=== PATIENT | male | born 1955 | race Caucasian/White ===

== ENCOUNTER 2017-04-22 16:55 | Observation (INO) | payer BC, OTHER ==
[~2017-04-22] VITALS: Ht 185.4 cm; Wt 87.1 kg
[2017-04-22] MEDS ORDERED: NITROGLYCERIN 0.4 MG SL TABS BTL 25'S SL ONE (17:01)
[2017-04-22] MEDS ORDERED: ASPIRIN 81 MG CHEW (CHILDREN'S ASA) ONE (17:01)
--- NOTE | 2017-04-22 17:08 | ED Chest Pain ---
General Stated Complaint: CHEST TIGHTNESS Source: patient Exam Limitations: no limitations History of Present Illness Time seen by provider: 17:05 Initial Comments To ER per private vehicle with reports of chest tightness in the epigastric region associated with shortness of breath. Symptoms began last night and have been intermittent since then. He feels as though his heart is pounding. He has no nausea or diaphoresis. No history personally of heart disease. He reports no known medical problems but he does not have a physician. He does feel anxious but states that he would have no reason to be anxious as he is retired. This discomfort in the chest and shortness of breath kept him from sleeping last night. He rates his chest tightness at a 3 out of 10. He states that he did have some flulike symptoms with body aches and a cough over the past week but those symptoms seem to have resolved. Timing/Duration: changing over time Severity/Quality: moderate Location: central Radiation: no radiation Activities at Onset: none ASA po LEACH TANK TENDER: No NTG SL LEACH TANK TENDER: No Allergies and Home Medications Allergies Coded Allergies: No Known Drug Allergies (Unverified , 04/22/17) Home Medications No Active Prescriptions or Reported Meds Review of Systems Constitutional: see HPI EENTM: No Symptoms Reported Respiratory: See HPI, Cough, Shortness of Air Cardiovascular: See HPI, Chest Pain, Denies Edema, Denies Irregular Heart Rate , Denies Lightheadedness, Palpitations, Denies Syncope Genitourinary: No Symptoms Reported Musculoskeletal: no symptoms reported Skin: no symptoms reported Psychiatric/Neurological: No Symptoms Reported Endocrine: No Symptoms Reported Hematologic/Lymphatic: No Symptoms Reported Physical Exam Vital Signs Vital Sign - Last 12Hours 04/22/17 17:11 Temp 98.2 Pulse 110 Resp 12 B/P (MAP) 148/100 (116) Pulse Ox 100 Capillary Refill : General Appearance: No Apparent Distress, WD/WN, Anxious HEENT: PERRL/EOMI, TMs Normal Neck: Full Range of Motion, Normal Inspection Respiratory: No Accessory Muscle Use, No Respiratory Distress Cardiovascular: Normal Peripheral Pulses, Tachycardia (sinus at 110) Gastrointestinal: Normal Bowel Sounds, Non Tender, Soft Neurologic/Psychiatric: Alert, Oriented x3 Skin: Normal Color, Warm/Dry Progress/Results/Core Measures Results/Orders Lab Results Laboratory Tests Test 04/22/17 17:03 Range/Units White Blood Count 8.1 4.3-11.0 10^3/uL Red Blood Count 5.16 4.35-5.85 10^6/uL Hemoglobin 16.7 13.3-17.7 G/DL Hematocrit 48 40-54 % Mean Corpuscular Volume 94 80-99 FL Mean Corpuscular Hemoglobin 32 25-34 PG Mean Corpuscular Hemoglobin Concent 35 32-36 G/DL Red Cell Distribution Width 13.7 10.0-14.5 % Platelet Count 323 130-400 10^3/uL Mean Platelet Volume 9.9 7.4-10.4 FL Neutrophils (%) (Auto) 78 H 42-75 % Lymphocytes (%) (Auto) 16 12-44 % Monocytes (%) (Auto) 6 0-12 % Eosinophils (%) (Auto) 1 0-10 % Basophils (%) (Auto) 1 0-10 % Neutrophils # (Auto) 6.3 1.8-7.8 X 10^3 Lymphocytes # (Auto) 1.3 1.0-4.0 X 10^3 Monocytes # (Auto) 0.5 0.0-1.0 X 10^3 Eosinophils # (Auto) 0.1 0.0-0.3 10^3/uL Basophils # (Auto) 0.1 0.0-0.1 10^3/uL Prothrombin Time 12.9 12.2-14.7 SEC INR Comment 1.0 0.8-1.4 Activated Partial Thromboplast Time 28 24-35 SEC Sodium Level 138 135-145 MMOL/L Potassium Level 3.5 L 3.6-5.0 MMOL/L Chloride Level 103 98-107 MMOL/L Carbon Dioxide Level 22 21-32 MMOL/L Anion Gap 13 5-14 MMOL/L Blood Urea Nitrogen 10 7-18 MG/DL Creatinine 0.85 0.60-1.30 MG/DL Estimat Glomerular Filtration Rate > 60 BUN/Creatinine Ratio 12 Glucose Level 119 H 70-105 MG/DL Calcium Level 9.5 8.5-10.1 MG/DL Magnesium Level 2.1 1.8-2.4 MG/DL Total Bilirubin 0.9 0.1-1.0 MG/DL Aspartate Amino Transf (AST/SGOT) 23 5-34 U/L Alanine Aminotransferase (ALT/SGPT) 31 0-55 U/L Alkaline Phosphatase 79 40-136 U/L Myoglobin 51.4 10.0-92.0 NG/ML Troponin I < 0.30 <0.30 NG/ML Total Protein 7.9 6.4-8.2 GM/DL Albumin 4.6 H 3.2-4.5 GM/DL Thyroid Stimulating Hormone (TSH) 2.08 0.35-4.94 UIU/ML Free Thyroxine 1.21 0.70-1.48 NG/DL My Orders Orders - MUKUL EDUARDO APRN Aspirin Chewable Tablet (Baby Aspirin Ch (04/22/17 17:01) Nitroglycerin 0.4 Mg Btl 25's (Nitrostat (04/22/17 17:01) Cbc With Automated Diff (04/22/17 17:03) Magnesium (04/22/17 17:03) Chest 1 View, Ap/Pa Only (04/22/17 17:03) Ekg Tracing (04/22/17 17:03) Cardiac Profile 1 (04/22/17 17:03) Comprehensive Metabolic Panel (04/22/17 17:03) Myoglobin Serum (04/22/17 17:03) Protime With Inr (04/22/17 17:03) Partial Thromboplastin Time (04/22/17 17:03) O2 (04/22/17 17:03) Monitor-Rhythm Ecg Trace Only (04/22/17 17:03) Lipid Panel (04/23/17 06:00) Saline Lock/Iv-Start (04/22/17 17:03) Aspirin Chewable Tablet (Baby Aspirin Ch (04/22/17 17:15) Nitroglycerin 0.4 Mg Btl 25's (Nitrostat (04/22/17 17:15) Ct Angio Chest W (04/22/17 17:08) Thyroid Stimulating Hormone (04/22/17 17:08) Free T4 (Free Thyroxine) (04/22/17 17:08) Iohexol Injection (Omnipaque 350 Mg/Ml 1 (04/22/17 17:45) Ns (Ivpb) (Sodium Chloride 0.9% Ivpb Bag (04/22/17 17:45) Alprazolam Tablet (Xanax Tablet) (04/22/17 18:15) Medications Given in ED Current Medications Medications Dose Ordered Sig/Zahira Route Start Time Stop Time Status Last Admin Dose Admin Aspirin 81 mg STK-MED ONCE .ROUTE 04/22/17 17:01 04/22/17 17:03 DC 04/22/17 17:05 81 MG Iohexol 125 ml ONCE ONCE IV 04/22/17 17:45 04/22/17 17:46 DC 04/22/17 17:47 125 ML Nitroglycerin 0.4 mg STK-MED ONCE SL 04/22/17 17:01 04/22/17 17:03 DC 04/22/17 17:05 0.4 MG Sodium Chloride 100 ml ONCE ONCE IV 04/22/17 17:45 04/22/17 17:46 DC 04/22/17 17:47 80 ML Vital Signs/I&O Vital Sign - Last 12Hours 04/22/17 17:11 Temp 98.2 Pulse 110 Resp 12 B/P (MAP) 148/100 (116) Pulse Ox 100 Progress Note : Progress Note 1811- patient feels a little better at this time he states. However the nitroglycerin sublingual did not seem to affect his pain. He states that he still feels jittery and anxious and he is only been able to sleep last night if he used NyQuil. I discussed with him the CT results including the right upper lobe nodule which could be scarring or neoplasm. I advised him of the importance of establishing care with a physician to follow-up on this with either a PET scan in the near future or repeat CT in 3-6 months. Given symptoms and absence of a prior workup such as stress testing I told him it would be appropriate to be admitted for observation or discharged to follow-up in the outpatient setting after a repeat troponin in the emergency room. He states that he would feel more at ease if he was observed overnight. Diagnostic Imaging Diagonstic Imaging: CT Comments NAME: OLINDA POWELL Chip MED REC#: [id number] PT STATUS: REG ER : 1955 PHYSICIAN: MUKUL EDUARDO APRN ADMIT DATE: 04/22/17/ER Draft Date of Exam:04/22/17 CT ANGIO CHEST W INDICATION: Tachycardia and chest tightness and chest pain. CTA chest obtained with IV contrast bolus and axial slices and maximal intensity projection reconstructions. FINDINGS: The pulmonary parenchymal vessels are well opacified with no CT evidence of pulmonary emboli. There is no evidence of aortic dissection or aneurysm. There is no pleural or pericardial fluid. Lung parenchymal windows demonstrate a spiculated density in the right upper lobe measuring around 7 mm. This may represent nodule or scar. We have no previous study for comparison. There is some linear scarring in the right middle lobe. Visualized portions of the upper abdomen demonstrated a small cyst in the right lobe of the liver superiorly. IMPRESSION: No CT evidence of pulmonary emboli or aortic dissection. There is a nodular spiculated density in the right upper lobe which may represent neoplasm or scar, measuring about 7 mm. We have no prior study for comparison. Recommend followup study in 3-6 months or PET imaging as clinically warranted. There is some mild linear scarring in the right middle lobe. There is a small probable cyst in the right lobe of the liver. Dictated on workstation # [id number] Dict: 04/22/17 1758 Trans: 04/22/17 1804 [facility] [id number] Interpreted by: MINNA RAMEY MD Electronically signed by: Departure Communication (Admissions) Time/Spoke to Admitting Phy: 18:[address] Leiva. We'll admit the patient, consult Dr. Quintanilla for cardiology and Dr. Arias for right upper lobe mass Time/Spoke to Consulting Phy: 18:25 Communication/Consulting Dr. Arias agrees to consult Family Conversation I did discuss the case with Dr. Quintanilla. We will order a Lexiscan stress test and a 2-D echocardiogram tomorrow Impression Impression: Primary Impression: Chest pain Additional Impressions: Anxiety RUL nodule Disposition: ADMITTED INPATIENT Condition: Stable Admissions Decision to Admit Reason: Admit from ER (General) Decision to Admit/Date: Apr 22, 2017 Time/Decision to Admit Time: 18:25 Departure-Patient Inst. Scripts No Active Prescriptions or Reported Meds MUKUL EDUARDO APRN Apr 22, 2017 17:08
[2017-04-22] MEDS ORDERED: NITROGLYCERIN 0.4 MG SL TABS BTL 25'S SL PRN (17:15)
[2017-04-22] MEDS ORDERED: ASPIRIN 81 MG CHEW (CHILDREN'S ASA) PO ONE (17:15)
[2017-04-22 17:16] LABS: BASOPHILS # (AUTO) 0.1 10^3/uL (0.0-0.1); BASOPHILS % (AUTO) 1 % (0-10); EOSINOPHILS # (AUTO) 0.1 10^3/uL (0.0-0.3); EOSINOPHILS % (AUTO) 1 % (0-10); HEMATOCRIT 48 % (40-54); HEMOGLOBIN 16.7 G/DL (13.3-17.7); LYMPHOCYTES # (AUTO) 1.3 X 10^3 (1.0-4.0); LYMPHOCYTES % (AUTO) 16 % (12-44); MEAN CORPUSCULAR HEMOGLOBIN 32 PG (25-34); MEAN CORPUSCULAR HGB CONC 35 G/DL (32-36); MEAN CORPUSCULAR VOLUME 94 FL (80-99); MEAN PLATELET VOLUME 9.9 FL (7.4-10.4); MONOCYTES # (AUTO) 0.5 X 10^3 (0.0-1.0); MONOCYTES % (AUTO) 6 % (0-12); NEUTROPHILS # (AUTO) 6.3 X 10^3 (1.8-7.8); NEUTROPHILS % (AUTO) 78 % (42-75); PLATELET COUNT 323 10^3/uL (130-400); RED BLOOD COUNT 5.16 10^6/uL (4.35-5.85); RED CELL DISTRIBUTION WIDTH 13.7 % (10.0-14.5); WHITE BLOOD COUNT 8.1 10^3/uL (4.3-11.0)
[2017-04-22 17:22] LABS: PROTHROMBIN TIME PATIENT 12.9 SEC (12.2-14.7)
[2017-04-22 17:33] LABS: ALANINE AMINOTRANSFERASE 31 U/L (0-55); ALBUMIN 4.6 GM/DL (3.2-4.5); ALKALINE PHOSPHATASE 79 U/L (40-136); BILIRUBIN,TOTAL 0.9 MG/DL (0.1-1.0); BUN/CREATININE RATIO 12; CALCIUM 9.5 MG/DL (8.5-10.1); CARBON DIOXIDE 22 MMOL/L (21-32); CHLORIDE 103 MMOL/L (98-107); CREATININE SERUM 0.85 MG/DL (0.60-1.30); GFR ESTIMATED > 60; GLUCOSE 119 MG/DL (70-105); MAGNESIUM 2.1 MG/DL (1.8-2.4); POTASSIUM 3.5 MMOL/L (3.6-5.0); SODIUM 138 MMOL/L (135-145); TOTAL PROTEIN 7.9 GM/DL (6.4-8.2)
[2017-04-22 17:41] LABS: MYOGLOBIN SERUM 51.4 NG/ML (10.0-92.0)
[2017-04-22] MEDS ORDERED: NS 100 ML (IVPB) BAG IV ONE (17:45)
[2017-04-22] MEDS ORDERED: IOHEXOL 350 MG/ML 150 ML (OMNIPAQUE 350) VIAL IV ONE (17:45)
[2017-04-22 17:55] LABS: FREE T4 (FREE THYROXINE) 1.21 NG/DL (0.70-1.48)
--- NOTE | 2017-04-22 18:05 | Diagnostic Imaging Report ---
INDICATION: Tachycardia and chest tightness and chest pain. CTA chest obtained with IV contrast bolus and axial slices and maximal intensity projection reconstructions. FINDINGS: The pulmonary parenchymal vessels are well opacified with no CT evidence of pulmonary emboli. There is no evidence of aortic dissection or aneurysm. There is no pleural or pericardial fluid. Lung parenchymal windows demonstrate a spiculated density in the right upper lobe measuring around 7 mm. This may represent nodule or scar. We have no previous study for comparison. There is some linear scarring in the right middle lobe. Visualized portions of the upper abdomen demonstrated a small cyst in the right lobe of the liver superiorly. IMPRESSION: No CT evidence of pulmonary emboli or aortic dissection. There is a nodular spiculated density in the right upper lobe which may represent neoplasm or scar, measuring about 7 mm. We have no prior study for comparison. Recommend followup study in 3-6 months or PET imaging as clinically warranted. There is some mild linear scarring in the right middle lobe. There is a small probable cyst in the right lobe of the liver. Dictated by: Dictated on workstation # [id number]
--- NOTE | 2017-04-22 18:08 | Diagnostic Imaging Report ---
INDICATION: Chest pain with racing heart. COMPARISON: None available. FINDINGS: Ill-defined right basilar airspace opacities. No dense consolidations in the visible lungs. Posterior lower lobes are poorly evaluated by portable radiography. No pleural effusion or pneumothorax. The heart is normal in size. IMPRESSION: 1. No imaging features of congestive heart failure. 2. Hazy opacities over the right lung base could relate to summation shadow of the patient's body habitus. Airspace disease associated with pneumonia or atelectasis could have this appearance as well. Dictated by: Dictated on workstation # [id number]
[2017-04-22] MEDS ORDERED: ALPRAZolam 0.25 MG (XANAX) TAB PO ONE (18:15)
[2017-04-22 19:30] VITALS: BP 111/67
[2017-04-22] MEDS ORDERED: ALPRAZolam 0.25 MG (XANAX) TAB PO PRN (19:45)
[2017-04-22] MEDS ORDERED: CATHETER FLUSH 10 ML SYR IV PRN (19:45)
[2017-04-22] MEDS: CATHETER FLUSH 10 ML SYR IV SCH (22:19)
[2017-04-23] VITALS: BP 96/52
[2017-04-23 04:41] VITALS: BP 53/52
[2017-04-23 05:29] LABS: CHOLESTEROL 166 MG/DL (< 200); HDL CHOLESTEROL 34 MG/DL (40-60); TRIGLYCERIDES 82 MG/DL (<150); VLDL CHOLESTEROL 16 MG/DL (5-40)
[2017-04-23] MEDS ORDERED: INFLUENZA TRIvalent 2017-2018 0.5 ML/45 MCG SYR IM ONE (07:00)
--- NOTE | 2017-04-23 07:09 | Pulmonary Consultation ---
History of Present Illness History of Present Illness Date of Consultation 04/23/17 07:03 Time Seen by Provider: 07:03 Date of Admission History of Present Illness 61yo presented to ED secondary to worsening SOB and chest tightness. Pt also complains of palpitations. He had recent flu like symptoms that were improving until now. NO prior episodes like this. CT scan was done and showed spiculated small 7mm RUL nodule. Pt was admitted to r/o unstable angina. I am consulted for pulmonary management. Allergies and Home Medications Allergies Coded Allergies: No Known Drug Allergies (Unverified , 04/22/17) Home Medications No Active Prescriptions or Reported Meds Past [id number]-Cvsmwv-Fsrayg Hx Patient Social History Alcohol Use: Denies Use Recreational Drug Use: No Smoking Status: Former Smoker Former Smoker, Quit: Apr 14, 2001 Recent Foreign Travel: No Contact w/Someone Who Travel: No Recent Infectious Disease Expo: No Recent Hopitalizations: No Physical Abuse: No Sexual Abuse: No Mistreated: No Fear: No Seasonal Allergies Seasonal Allergies: No Surgeries History of Surgeries: Yes (KNEE SX, CATARACTS REMOVED) Respiratory History of Respiratory Disorde: No Cardiovascular History of Cardiac Disorders: No Neurological History of Neurological Disord: No Genitourinary History of Genitourinary Disor: No Gastrointestinal History of Gastrointestinal Di: No Musculoskeletal History of Musculoskeletal Dis: No Endocrine History of Endocrine Disorders: No HEENT History of HEENT Disorders: No Cancer History of Cancer: No Psychosocial History of Psychiatric Problem: No Suicide Risk Score: 0 Integumentary History of Skin or Integumenta: No Blood Transfusions History of Blood Disorders: No Adverse Reaction to a Blood Tr: No Family Medical History Family Medial History: Patient reports no known family medical history. Review of Systems Time Seen by Provider: 07:09 Constitutional: Weakness, Malaise, No: Fever, Chills, Sweats, Other Eyes: No: Pain, Vision change, Conjunctivae inflammation, Eyelid inflammation, Other, Redness ENT: No: Ear pain, Ear discharge, Nose pain, Nose discharge, Nose congestion, Mouth pain, Mouth swelling, Throat pain, Throat swelling, Other Respiratory: Cough, Dry, Shortness of breath, SOB with excertion, Wheezing Cardiovascular: Chest Pain, Palpitations, Paroxysmal Noc. Dyspnea, Lt Headedness Gastrointestinal: No: Nausea, Vomiting, Abdominal Pain, Diarrhea, Constipation , Melena, Hematochezia, Other Neurological: Weakness, Incoordination Exam Exam Vital Signs Date Time Temp Pulse Resp B/P (MAP) Pulse Ox O2 Delivery O2 Flow Rate FiO2 04/23/17 04:41 97.7 60 16 53/52 (52) 96 Room Air 04/23/17 01:00 67 04/23/17 00:00 98.0 60 16 96/52 (67) 94 Room Air 04/22/17 20:03 66 04/22/17 20:00 95 Room Air 04/22/17 19:30 97.3 71 18 111/67 (82) 95 Room Air 04/22/17 18:55 71 20 97 04/22/17 17:11 98.2 110 12 148/100 (116) 100 I & O 04/23/17 07:00 Intake Total 400 ml Output Total 100 ml Balance 300 ml General Appearance: No Apparent Distress, WD/WN, Anxious HEENT: PERRL/EOMI, TMs Normal Neck: Full Range of Motion, Normal Inspection Respiratory: No Accessory Muscle Use, No Respiratory Distress Cardiovascular: Normal Peripheral Pulses, Tachycardia (sinus at 110) Capillary Refill: Less Than 3 Seconds Gastrointestinal: normal bowel sounds, non tender, soft, no organomegaly, no pulsatile mass Neurologic/Psychiatric: Alert, Oriented x3 Skin: Normal Color, Warm/Dry Results Lab Laboratory Tests 04/22/17 17:03 Assessment/Plan Assessment/Plan CP r/o unstable angina -Cardiology is following -echo is pending Small RUL 7mm nodule -pt will need a repeat CT scan in 6mo -I will continue to follow pt as out patient -CT shows no PE 254 Clinical Quality Measures AMI/AHF: ASA po Prior to arrival: No DVT/VTE Risk/Contraindication: Risk Factor Score Per Nursin RFS Level Per Nursing on Admit: 2=Moderate SHAYY ART DO Apr 23, 2017 07:09
[2017-04-23] MEDS ORDERED: ASPIRIN 81 MG CHEW (CHILDREN'S ASA) PO SCH (09:00)
[2017-04-23] MEDS ORDERED: REGADENOSON 0.4 MG/5 ML SYR (LEXISCAN) IV ONE ×2 (09:04→10:00)
--- NOTE | 2017-04-23 10:36 | Consultation-Cardiology ---
HPI-Cardiology Cardiology Consultation: Date of Consultation 04/23/17 Date of Admission Attending Physician Gordy Leiva MD Admitting Physician Chelsey,Local Physician Consulting Physician Pamela QUINTANILLA MD HPI: Time Seen by Provider: 10:36 Chief Complaint: Chest pain, shortness of breath, palpitations This is a 61-year-old gentleman who has previous history of active smoking. He quit in October last year. Patient denies any other medical or cardiac history. He presented with chest pain, shortness of breath, palpitations yesterday. The chest pain was mild to moderate in intensity and did not radiate. Associated with shortness of breath and palpitations. The palpitations were described as heart pounding. This is a first episode the patient has had. No further symptoms. Review of Systems-Cardiology Review of Systems Constitutional: No As described under HPI, No no symptoms reported, No chills, No fever, No lightheadedness, No malaise, No tiredness, No weight loss, No weight gain, No other Eyes: No As described under HPI, No no symptoms reported, No blindness, No blurred vision, No contact lenses, No drainage, No decreased acuity, No foreign body sensation, No glasses, No inflammation, No pain, No photophobia, No previous injury, No shadows, No tunnel vision, No other, No vision change Ears/Nose/Throat: No As described under HPI, No no symptoms reported, No chronic hearing loss, No epistaxis, No ear discharge, No ear pain, No loose teeth, No mouth pain, No mouth swelling, No nasal drainage, No nose pain, No recent hearing loss, No throat pain, No throat swelling, No ulcerations, No other Respiratory: shortness of breath Cardiovascular: chest pain, palpitations Gastrointestinal: No no symptoms reported, No As described under HPI, No abdomen distended, No abdominal pain, No blood streaked bowels, No constipation , No diarrhea, No difficulty swallowing, No nausea, No poor appetite, No poor fluid intake, No rectal bleeding, No vomiting, No other, No nausea/vomiting/ diarrhea, No stool coloration changes Genitourinary: No no symptoms reported, No As described under HPI, No burning, No dysuria, No discharge, No frequency, No flank pain, No hematuria, No incontinence, No pain, No urgency, No other, No urine frequency changes, No urine coloration changes Musculoskeletal: No no symptoms reported, No As describe under HPI, No back pain, No gout, No joint pain, No joint swelling, No muscle pain, No muscle stiffness, No neck pain, No other Skin: No no symptoms reported, No As described under HPI, No change in color, No change in hair/nails, No dryness, No lesions, No lumps, No rash, No other, No skin related problems, No ulcerations, No rash on exposed areas, No ulcerations on exposed areas Psychiatric/Neurological: No no symptoms reported, No As described under HPI, No anxiety, No depression, No emotional problems, No headache, No numbness, No pre-existing deficit, No seizure, No tingling, No tremors, No weakness, No other , No focal weakness, No syncope Hematologic: No no symptoms reported, No As described under HPI, No anemia, No blood clots, No easy bleeding, No easy bruising, No swollen glands, No other, No bleeding abnormalities MVB-[id number]-Cocspg Hx Patient Social History Alcohol Use: Denies Use Recreational Drug Use: No Smoking Status: Former Smoker Recent Foreign Travel: No Recent Infectious Disease Expo: No Physical Abuse Screen: No Sexual Abuse: No Past Medical History PMH As described under Assessment. Family Medical History Family History: Patient reports no known family medical history. Allergies and Home Medications Allergies Coded Allergies: No Known Drug Allergies (Unverified , 04/22/17) Home Medications No Active Prescriptions or Reported Meds Physical Exam-Cardiology Physical Exam Vital Signs/I&O Vital Sign - Last 12Hours 04/23/17 04/23/17 04/23/17 04/23/17 01:00 04:41 07:00 12:00 Temp 97.7 99.3 Pulse 67 60 80 70 Resp 16 20 B/P (MAP) 53/52 (52) 121/70 (87) Pulse Ox 96 96 O2 Delivery Room Air Room Air Intake and Output 04/23/17 00:00 Output Total 100 ml Balance -100 ml Capillary Refill : Less Than 3 Seconds Constitutional: No appears stated age, No AAO x 3, No apparent distress, No PERRL, No well-developed, No well-nourished, No other HEENT: No PERRL, No normal ENT inspection, No TMs normal, No pharynx normal, No scleral icterus (R), No scleral icterus (L), No pale conjunctivae (R), No pale conjunctivae (L), No photophobia, No TM abnormal (R), No TM abnormal (L), No pharyngeal erythema, No tonsillar exudate, No other, No discharge, No EOMI, No hearing is well preserved, No hard of hearing, No oral hygience is good, No ulceration, No xanthelasmas are seen Respiratory: lungs clear to percussion, lungs clear to auscultation Cardiovascular: regular rate-rhythm, No irregularly irregular, No extra beats, No parasternal heave is noted, No JVD, No edema, No bradycardia, No tachycardia , No point of maximal impulse, No cardiac thrills are palpable, S1 and S2, No gallop/S3, No gallop/S4, No diastolic murmur, No systolic murmur, No friction rub, No click, No other Gastrointestinal: No tender, No soft, No round, No distended, No pulsatile mass , No organomegaly, No guarding, No rebound, No tenderness, No hernia, No mass, No audible bowel sounds, No abnormal bowel sounds, No abdominal bruits, No spleenomegaly, No other Rectal: deferred Extremities: No normal range of motion, No non-tender, No normal inspection, No pedal edema, No calf tenderness, No normal capillary refill, No pelvis stable , No calf tenderness, No inflammation, No pedal edema, No slow capillary refill , No swelling, No other, No abrasion, No clubbing, No cyanosis, No ecchymosis, No laceration, No no lower extremity edema bilateral, No significant edema, No tenderness, No wound Neurologic/Psychiatric: No engineer sergeant II-XII nml as tested, No no motor/sensory deficits, No alert, No normal mood/affect, No oriented x 3, No abnormal cerebellar tests, No abnormal engineer sergeant II-XII, No abnormal gait, No aphasia, No EOM palsy, No facial droop, No motor weakness, No sensory deficit, No depressed affect, No disoriented x 3, No other, No grossly intact, No power is 5/5 both on sides Skin: No normal color, No warm/dry, No cyanosis, No cool, No diaphoresis, No damp, No ecchymosis, No jaundice, No mottled, No pallor, No rash, No tattoos/ piercings, No ulcerations, No rash on exposed areas, No ulcerations on exposed areas, No other Data Review Labs Laboratory Tests 04/22/17 17:03: White Blood Count 8.1, Red Blood Count 5.16, Hemoglobin 16.7, Hematocrit 48, Mean Corpuscular Volume 94, Mean Corpuscular Hemoglobin 32, Mean Corpuscular Hemoglobin Concent 35, Red Cell Distribution Width 13.7, Platelet Count 323, Mean Platelet Volume 9.9, Neutrophils (%) (Auto) 78H, Lymphocytes (%) (Auto) 16 , Monocytes (%) (Auto) 6, Eosinophils (%) (Auto) 1, Basophils (%) (Auto) 1, Neutrophils # (Auto) 6.3, Lymphocytes # (Auto) 1.3, Monocytes # (Auto) 0.5, Eosinophils # (Auto) 0.1, Basophils # (Auto) 0.1, Prothrombin Time 12.9, INR Comment 1.0, Activated Partial Thromboplast Time 28, Sodium Level 138, Potassium Level 3.5L, Chloride Level 103, Carbon Dioxide Level 22, Anion Gap 13 , Blood Urea Nitrogen 10, Creatinine 0.85, Estimat Glomerular Filtration Rate > 60, BUN/Creatinine Ratio 12, Glucose Level 119H, Calcium Level 9.5, Magnesium Level 2.1, Total Bilirubin 0.9, Aspartate Amino Transf (AST/SGOT) 23, Alanine Aminotransferase (ALT/SGPT) 31, Alkaline Phosphatase 79, Myoglobin 51.4, Troponin I < 0.30, Total Protein 7.9, Albumin 4.6H, Thyroid Stimulating Hormone (TSH) 2.08, Free Thyroxine 1.21 04/23/17 01:00: Troponin I < 0.30 04/23/17 05:00: Triglycerides Level 82, Cholesterol Level 166, LDL Cholesterol Direct 119, VLDL Cholesterol 16, HDL Cholesterol 34L ECG Impression ECG Initial ECG Rhythm: Normal Sinus Initial ECG Impression: Normal A/P-Cardiology Assessment/Admission Diagnosis Chest pain, shortness of breath, Palpitations, Right upper lobe mass. Plan Chest pain: Acute coronary syndrome ruled out with negative serial troponin. EKG is negative. Pharmacological nuclear stress test today. Shortness of breath: Not in acute congestive heart failure. Echocardiogram showed normal LV function. No significant valvular heart disease. Palpitation: Patient will require Holter monitor and event monitor as an outpatient. If nuclear stress test is negative, I will see the patient as an outpatient in 2 -3 weeks. Thank you for your consultation. Please call me if you have any questions. Nessa Quintanilla MD, FACP, FACC, FSCAI, FHRS, CCDS Interventional Cardiology Cardiac Electrophysiology Vascular Medicine and Endovascular Interventions Clinical Quality Measures AMI/AHF: ASA po Prior to arrival: No DVT/VTE Risk/Contraindication: Risk Factor Score Per Nursin RFS Level Per Nursing on Admit: 2=Moderate Pamela QUINTANILLA MD Apr 23, 2017 10:36 am
--- NOTE | 2017-04-23 10:50 | Short Stay Summary-Hospitalist ---
HPI History of Present Illness: HPI/Chief Complaint Mr. Oneill is a 61-year-old white male who noted the onset of precordial epigastric tightness. It was nonradiating but associated with some shortness of breath. He denied cough or heartburn type sensation but did feel a sensation of restriction and breathing. He denied diaphoresis chills or fever and has not had any sputum production. He is on no medication and is not under anybody's medical care. His symptoms began roughly 24 hours prior to his presentation with some waxing and waning features. He denied diaphoresis nausea or pleuritic component to his symptoms. He has not previously experienced chest discomfort like this now. He did take some NyQuil. He reports that he had some sensations of heart racing and that it appeared to be a regular pounding sensation associated with this discomfort as well. Upon his arrival to the emergency room he was noted to be in sinus tachycardia with subsequent CT angiogram revealing no evidence for pulmonary embolism or pneumonia. He did have a 7 mm spiculated appearing right upper lobe mass. Patient has a past [id number] smoking history but quit in 2001. Date Seen 04/23/17 Time Seen by Provider: 10:00 Attending Physician Joey Kruger M.D. PCP No,Local Physician Referring Physician Date of Admission Apr 22, 2017 at 17:39 Home Medications & Allergies Home Medications Reviewed patient Home Medication Reconciliation Form Allergies Allergies Coded Allergies No Known Drug Allergies (Unverified04/22/17) Past Zpmolyq-Esqqrt-Vyslhc Hx Patient Social History Alcohol Use: Denies Use Recreational Drug Use: No Smoking Status: Former Smoker Former Smoker, Quit: Apr 14, 2001 Physical Abuse Screen: No Sexual Abuse: No Recent Foreign Travel: No Contact w/other who traveled: No Recent Hopitalizations: No Recent Infectious Disease Expo: No Seasonal Allergies Seasonal Allergies: No Surgeries Yes (KNEE SX, CATARACTS REMOVED) Respiratory No Cardiovascular No Neurological No Genitourinary No Gastrointestinal No Musculoskeletal No Endocrine History of Endocrine Disorders: No HEENT History of HEENT Disorders: No Cancer No Psychosocial History of Psychiatric Problem: No Integumentary History of Skin or Integumenta: No Blood Transfusions History of Blood Disorders: No Adverse Reaction to a Blood Tr: No Family Medical History Family Hx: Patient reports no known family medical history. Review of Systems Constitutional: see HPI, No chills, No diaphoresis, No dizziness, No fever, No malaise, No weakness, No weight gain, No weight loss, No other Respiratory: cough, No dyspnea on exertion, No hemoptysis, No orthopnea, No phlegm, No short of breath, No stridor, No wheezing, No other Cardiovascular: see HPI, chest pain, No edema, No Hx of Intervention, No palpitations, No syncope, No vascular heart diseas, other (racing sensation) Gastrointestinal: see HPI, other (I'll the epigastric discomfort) Physical Exam Physical Exam Vital Signs Vital Sign - Last 12Hours 04/22/17 04/22/17 17:11 19:30 Temp 98.2 Pulse 110 Resp 12 B/P (MAP) 148/100 (116) Pulse Ox 100 O2 Delivery Room Air Capillary Refill : Less Than 3 Seconds General Appearance: No Apparent Distress, WD/WN Neck: Full Range of Motion, Normal Inspection, Non Tender, Supple, Carotid Bruit Respiratory: Chest Non Tender, Lungs Clear, Normal Breath Sounds, No Accessory Muscle Use, No Respiratory Distress Cardiovascular: Regular Rate, Rhythm, No Edema, No Gallop, No JVD, No Murmur, Normal Peripheral Pulses Gastrointestinal: Normal Bowel Sounds, No Organomegaly, No Pulsatile Mass, Non Tender, Soft Extremity: Normal Capillary Refill, Normal Inspection, Normal Range of Motion, Non Tender, No Calf Tenderness, No Pedal Edema Neurologic/Psychiatric: Alert, Oriented x3 Skin: Normal Color, Warm/Dry Lymphatic: No Adenopathy Results Results/Procedures Lab Laboratory Tests 04/22/17 17:03 Short Stay Diagnosis Discharge Diagnosis-Short Stay Admission Diagnosis 1. Chest pain 2. Right upper lobe pulmonary nodule. Final Discharge Diagnosis 1. Unstable angina. 2. 7 mm right upper lobe pulmonary nodule 3. Sinus tachycardia Conclusion Plan was admitted to the floor initially underwent echocardiography. Luminary report is no segmental wall motion demonstrative 5 with no significant abnormalities final report is pending. The patient is undergoing nuclear medicines stress testing per Dr. Quintanilla. As long as there is no evidence to suggest an acute coronary syndrome he will be discharged. Had a long discussion but the fact that he needed follow-up CT scanning preferably in 6 months after discussion with Dr. Arias. Discussed concerns about early malignancy although benign process is statistically more likely. He does have risk factors including a previous 40+ pack year smoking history having quit reportedly almost 16 years ago now. subsequent stress testing did reveal a moderate anterior wall reperfusion defect. Patient strongly recommended to have heart catheterization that he refused see Dr. Quintanilla's note. He requests discharge. Considering LDL level of 116 recommended moderate/high dose statin therapy in the form of Lipitor 40 mg daily with follow-up with me in 2 months for repeat testing. For any perceived side effects patient to hold medication and call. Plan CT scan follow-up in 6 months. Clinical Quality Measures AMI/AHF: ASA po Prior to arrival: No DVT/VTE Risk/Contraindication: Risk Factor Score Per Nursin RFS Level Per Nursing on Admit: 2=Moderate JOEY KRUGER MD Apr 23, 2017 10:50
[2017-04-23 12:00] VITALS: BP 121/70
[2017-04-23] MEDS: CATHETER FLUSH 10 ML SYR IV SCH (12:06)
[2017-04-23] MEDS ORDERED: NS IV 1000 ML 0 ML ONE (12:35)
[2017-04-23] MEDS ORDERED: LIDOCAINE 1% INJ 50 ML (XYLOCAINE) VIAL ONE (12:35)
[2017-04-23] MEDS ORDERED: MIDAZOLAM 5 MG/5 ML (VERSED) VIAL ONE (12:35)
[2017-04-23] MEDS ORDERED: HEParin (CATH LAB) 2,000 ML IV ONE (12:35)
[2017-04-23] MEDS ORDERED: fentaNYL INJECTION 100 MCG/2 ML AMP ONE (12:35)
[2017-04-23 13:00] VITALS: BP 121/70
[2017-04-23] MEDS ORDERED: ASPI-999 PO (13:05)
--- NOTE | 2017-04-23 13:05 | Cardiology Progress Note ---
Clinical Quality Measures AMI/AHF: ASA po Prior to arrival: No A/P-Cardiology Assessment/Admission Diagnosis Chest pain, shortness of breath, Palpitations, Right upper lobe mass. Plan Pharmacological nuclear stress test shows evidence of moderate amount of ischemia in the anterior, septal and apical territories. Coronary angiography was strongly suggested. However, the patient does not want it now and will like to schedule as an outpatient. He understands the risks associated with delaying the procedure including NM and from NM. He understands the risks. He can be discharged on aspirin and NTG sublingual PRN. He was also educated to seek immediate medical attention if he has recurrent symptoms. Thank you for your consultation. Please call me if you have any questions. Nessa Quintanilal MD, FACP, FACC, FSCAI, FHRS, CCDS Interventional Cardiology Cardiac Electrophysiology Vascular Medicine and Endovascular Interventions Pamela QUINTANILLA MD Apr 23, 2017 1:04 pm
[2017-04-23] MEDS ORDERED: NITR0.4T42 SL (13:06)
[2017-04-23] MEDS ORDERED: ATOR40TA70 PO (14:02)
--- NOTE | 2017-04-23 20:50 | STRESS TEST ---
DATE OF SERVICE: 04/23/2017 PHARMACOLOGICAL NUCLEAR STRESS TEST REPORT ATTENDING PHYSICIAN: Gordy Leiva MD DIAGNOSES: Chest pain, shortness of breath, palpitations, history of active smoking. PROCEDURE DETAILS: The patient was brought to the stress lab after informed consent was taken. All the risks and complications were explained in detail. Pharmacological stress test was performed according to the protocol. A 0.4 mg of IV Lexiscan was given. Low grade exercise was performed. Baseline EKG showed sinus rhythm at 67 BPM and blood pressure was 132/76 mmHg. Maximum heart rate was 116 BPM and blood pressure was 164/69 mmHg. A 10.74 mCi of Myoview given for rest imaging and 31.9 mCi of Myoview given for stress imaging. TID 0.93. EF 75% with normal wall motion. There is a mid anterior, apical and septal reversible defect. The defect is moderate in size and intermediate in intensity. SSS 14, SRS 0, SDS 14. CONCLUSION: 1. Pharmacological stress test was negative for ischemia. 2. Normal EF and wall motion. 3. Evidence of anterior, apical and septal ischemia is noted. Coronary angiography is recommended. Job ID: [id number] DocumentID: [id number] Dictated Date: 04/23/2017 12:29:18 Accounting Director Date: 04/23/2017 13:13:11 Dictated By: AMY EMMANUEL MD
== END 2017-04-23 15:15 | disposition home or self-care (01) ==
LOC: ER 16:57 → 4TH 17:39 → UNDOADMOB 17:39 → 4TH 19:25
PROVIDERS: ADMIT Internal Medicine; ATTEND Internal Medicine
DX: I20.0 Unstable angina (principal); R91.1 Solitary pulmonary nodule; R00.0 Tachycardia, unspecified; Z87.891 Personal history of nicotine dependence
CPT/HCPCS: 36415; 71045; 71275; 78452; 80053; 80061; 83735; 83874; 84439; 84443; 84484; 85025; 85610; 85730; 93005; 93017; 93041; 93306; G0378

== ENCOUNTER 2017-04-23 15:23 | Outpatient (RCR) | payer BC ==
[~2017-04-23 15:23] MED LIST: ASPI-999 PO; ATOR40TA70 PO; NITR0.4T42 SL
[2017-04-26] MEDS ORDERED: ATOR80TA76 PO (10:57)
[2017-04-26] MEDS ORDERED: LISI-556 PO (10:57)
[2017-04-26] MEDS ORDERED: TICA90TA PO (10:57)
[2017-04-26] MEDS ORDERED: METO-387 PO (10:57)
== END 2017-07-22 | disposition home or self-care (01) ==
LOC: CARD 15:23
PROVIDERS: ATTEND Internal Medicine Interventional Cardiology
DX: R07.9 Chest pain, unspecified (principal)
CPT/HCPCS: 93225; 93226

== ENCOUNTER 2017-04-25 09:01 | Day surgery (SDC) | payer BC ==
[~2017-04-25] VITALS: Ht 185.4 cm; Wt 86.3 kg
[2017-04-25] VITALS (12 sets, daily range): BP systolic 108–142; BP diastolic 62–87
[2017-04-25] MEDS ORDERED: NS IV 1000 ML 1,000 ML ONE (09:10)
[2017-04-25] MEDS ORDERED: HEParin (CATH LAB) 2,000 ML IV ONE (09:10)
[2017-04-25] MEDS ORDERED: LIDOCAINE 1% INJ 50 ML (XYLOCAINE) VIAL ONE (09:10)
[2017-04-25] MEDS ORDERED: NS IV 1000 ML 1,000 ML IV SCH (09:15)
[2017-04-25 09:49] LABS: HEMOGLOBIN 16.6 G/DL (13.3-17.7); MEAN PLATELET VOLUME 10.1 FL (7.4-10.4); RED BLOOD COUNT 5.05 10^6/uL (4.35-5.85); RED CELL DISTRIBUTION WIDTH 13.4 % (10.0-14.5); WHITE BLOOD COUNT 7.3 10^3/uL (4.3-11.0)
[2017-04-25 10:01] LABS: PROTHROMBIN TIME PATIENT 13.1 SEC (12.2-14.7)
[2017-04-25 10:10] LABS: ALANINE AMINOTRANSFERASE 31 U/L (0-55); ALBUMIN 4.5 GM/DL (3.2-4.5); ALKALINE PHOSPHATASE 74 U/L (40-136); BILIRUBIN,TOTAL 0.8 MG/DL (0.1-1.0); BUN/CREATININE RATIO 18; CALCIUM 9.2 MG/DL (8.5-10.1); CARBON DIOXIDE 19 MMOL/L (21-32); CHLORIDE 109 MMOL/L (98-107); CREATININE SERUM 0.87 MG/DL (0.60-1.30); GFR ESTIMATED > 60; GLUCOSE 118 MG/DL (70-105); POTASSIUM 3.7 MMOL/L (3.6-5.0); SODIUM 140 MMOL/L (135-145); TOTAL PROTEIN 7.5 GM/DL (6.4-8.2)
[2017-04-25] MEDS ORDERED: INFLUENZA TRIvalent 2017-2018 0.5 ML/45 MCG SYR IM ONE (10:15)
[2017-04-25] MEDS ORDERED: VERAPAMIL 5 MG/2 ML (CALAN) VIAL IV ONE (11:25)
[2017-04-25] MEDS ORDERED: NITROGLYCERIN DRIP 25 MG/D5W 250 ML IV ONE (11:25)
[2017-04-25] MEDS ORDERED: HEParin 1000 UNIT/ML (10ML VIAL) FOR BOLUS ONE (11:25)
[2017-04-25] MEDS ORDERED: fentaNYL INJECTION 100 MCG/2 ML AMP ONE (11:25)
[2017-04-25] MEDS ORDERED: MIDAZOLAM 5 MG/5 ML (VERSED) VIAL ONE (11:25)
--- NOTE | 2017-04-25 11:34 | Cardiac Procedure Note-CS/ASA ---
Pre-Procedure Note Pre-Op Procedure Note H&P Reviewed The H&P was reviewed, patient examined and no changes noted. Date H&P Reviewed: Apr 25, 2017 Time H&P Reviewed: 11:34 Conscious Sedation Pre-Proced Time Reviewed: 11:34 ASA Class: 3 Airway Mallampati Classification: ([place] appropriate class) I. II. III, IV Lungs Heart ASA score ASA 1: a normal healthy patient ASA 2: a patient with a mild systemic disease (mid diabetes, controlled hypertension, obesity ASA 3: a patient with a severe systemic disease that limits activity (angina , COPD, prior Myocardial infarction) ASA 4: a patient with an incapacitating disease that is a constant threat to life (CHF, renal failure) ASA 5: a moribund patient not expected to survive 24 hrs. (ruptured aneurysm) ASA 6: a declared brain patient whose organs are being harvested. For emergent operations, add the letter E after the classification Grade 1 Sedation Plan: Analgesia, Amnesia, Plan communicated to team members, Discussed options with patient/fam, Discussed risks with patient/fam Note The patient is an appropriate candidate to undergo the planned procedure, sedation, and anesthesia. The patient immediately re-assessed prior to indication. Pamela EMMANUEL MD Apr 25, 2017 11:34 am
[2017-04-25] MEDS ORDERED: TICAGRELOR 90 MG TABLET (BRILINTA) PO ONE (12:14)
--- NOTE | 2017-04-25 12:38 | Cardiology Post Procedure Note ---
Post-Procedure Note Physician (s)/Comb Winder (s) Physician Pamela EMMANUEL MD Pre-Procedure Diagnosis Pre-Procedure Diagnosis: Chest pain, abnormal nuclear stress test Post-Procedure Note Procedure Start Date: Apr 25, 2017 Procedure Start Time: 12:00 Name of Procedure: Coronary angiography, left heart catheterization, PCI to the LAD with drug-eluting stent Findings/Procedure Note severe mid LAD stenosis. Stenosis severity 90 percent. Treated successfully with drug-eluting stent 2.75X 14mm at 16 david. Anesthesia Type: Conscious Sedation Estimated blood loss (mL): 10 Contrast Amount: 144 Post-Procedure Diagnosis Post-operative diagnosis: Severe mid LAD disease treated successfully with drug-eluting stent. Pamela EMMANUEL MD Apr 25, 2017 12:38 pm
[2017-04-25] MEDS ORDERED: PATIENT MAY USE OWN MEDS, ALL PO SCH (12:45)
--- NOTE | 2017-04-25 14:53 | CARDIAC CATHETERIZATION ---
DATE OF SERVICE: 04/25/2017 CORONARY ANGIOGRAPHY AND PCI REPORT INDICATION: Chest pain, abnormal nuclear stress test. PREOPERATIVE DIAGNOSIS: Recurrent chest pain, abnormal nuclear stress test. POSTOPERATIVE DIAGNOSIS: Severe mid LAD stenosis treated successfully with one drug-eluting stent. HISTORY: The patient is a 61-year-old gentleman, who presented recently with prolonged episode of chest pain. Acute coronary syndrome was ruled out with negative EKG and serial troponins. A nuclear stress test was performed, which showed evidence of reversible ischemia in the anterior and anterior apical territory. Coronary angiography was recommended. PROCEDURES PERFORMED: 1. Coronary angiography. 2. Left heart catheterization. 3. PCI to the LAD with one drug-eluting stent. COMPLICATIONS: None. SPECIMENS: None. ESTIMATED BLOOD LOSS: 10 mL. ANTICOAGULATION: IV heparin. ANESTHESIA: Conscious sedation. CONTRAST DOSE: 144 mL of Omnipaque. FLUOROSCOPY TIME: 7.1 minutes. FLUOROSCOPY DOSE: 798 milligrays. PROCEDURE DETAILS: The patient was brought to the medical lab director after informed consent was taken. All the risks and complications were explained in detail. Access was gained in the right radial artery with a 6-Anguillan sheath. Coronary angiography was performed with a House catheter. Left heart catheterization was performed with a House catheter. FINDINGS: 1. Left main: Patent. 2. LAD: Severe mid LAD disease. Stenosis severity 90%. No significant distal disease. 3. Left circumflex artery: Small left circumflex artery with no significant disease. 4. RCA: Patent vessel with no significant disease. 5. Left heart catheterization: Aortic pressure 86/57 mmHg. LV pressure 97/0 mmHg. LVEDP 8 mmHg. Normal LV function with no wall motion abnormalities. There was no gradient across the aortic valve. RECOMMENDATIONS: PCI to mid LAD is recommended. PCI DETAILS: Guiding catheter was JL3.5 guide catheter, BMW guidewire and heparin for anticoagulation. ACT at the start of the procedure was 213 seconds. The lesion was crossed very easily with the BMW guidewire. Please also note that Brilinta 180 mg p.o. bolus was given before the start of PCI. A 100 mcg of intracoronary nitroglycerin was given. We then took a 2.75 x 14 Resolute Integrity stent and placed it at 14 atmospheres for 39 seconds. Another inflation was performed to 16 atmospheres for 33 seconds. Post-PCI angiographic results showed excellent NAHUN 3 flow with no residual stenosis. The wire was taken out with no vascular complications. CONCLUSION: 1. Severe mid LAD stenosis treated successfully with a one single drug-eluting stent. 2. Aspirin and Brilinta for at least a year. 3. High dose statin, beta tawnya and MICHAEL inhibitor will be prescribed. Job ID: [id number] DocumentID: [id number] Dictated Date: 04/25/2017 14:09:10 Emissions Testing And Repair Technician Date: 04/25/2017 14:52:34 Dictated By: AMY EMMANUEL MD
[2017-04-25] MEDS: TICAGRELOR 90 MG TABLET (BRILINTA) PO SCH (20:06)
[2017-04-25] MEDS ORDERED: ATORVASTATIN 80 MG (LIPITOR) TABLET PO SCH (21:00)
[2017-04-26] VITALS: BP 128/62
[2017-04-26] MEDS: NS IV 1000 ML 1,000 ML IV SCH ×2 (02:33→08:20)
[2017-04-26 04:20] VITALS: BP 124/68
[2017-04-26 06:42] LABS: HEMOGLOBIN 14.6 G/DL (13.3-17.7); MEAN PLATELET VOLUME 10.3 FL (7.4-10.4); RED BLOOD COUNT 4.46 10^6/uL (4.35-5.85); RED CELL DISTRIBUTION WIDTH 13.3 % (10.0-14.5); WHITE BLOOD COUNT 6.6 10^3/uL (4.3-11.0)
[2017-04-26 07:08] LABS: BUN/CREATININE RATIO 15; CALCIUM 8.5 MG/DL (8.5-10.1); CARBON DIOXIDE 23 MMOL/L (21-32); CHLORIDE 110 MMOL/L (98-107); CHOLESTEROL 120 MG/DL (< 200); CREATININE SERUM 0.79 MG/DL (0.60-1.30); GFR ESTIMATED > 60; GLUCOSE 89 MG/DL (70-105); HDL CHOLESTEROL 29 MG/DL (40-60); POTASSIUM 3.5 MMOL/L (3.6-5.0); SODIUM 142 MMOL/L (135-145); TRIGLYCERIDES 75 MG/DL (<150); VLDL CHOLESTEROL 15 MG/DL (5-40)
[2017-04-26 07:58] VITALS: BP 138/84
[2017-04-26] MEDS: TICAGRELOR 90 MG TABLET (BRILINTA) PO SCH (08:19)
[2017-04-26] MEDS ORDERED: lisINopril 5 MG (PRINIVIL) TABLET PO SCH (09:00)
[2017-04-26] MEDS ORDERED: ASPIRIN E.C. 81 MG (ECOTRIN) TAB PO SCH (09:00)
[2017-04-26] MEDS ORDERED: LISI-556 PO (10:57)
[2017-04-26] MEDS ORDERED: METO-387 PO (10:57)
[2017-04-26] MEDS ORDERED: TICA90TA PO (10:57)
[2017-04-26] MEDS ORDERED: ATOR80TA76 PO (10:57)
--- NOTE | 2017-04-26 10:58 | Discharge Inst-Post CATH ---
Discharge Inst-CATH Post Cardiac Cath D/C Inst Follow Up/Plan Dr. Quintanilla in one to 2 weeks CARDIAC CATH DISCHARGE INSTRUCTIONS *Hold Metformin for 48 hours post heart cath. ACTIVITY * Go Home directly and rest. * Limit activity of the leg (or wrist if it was used) for 7 days including aerobics, swimming, jogging, bicycling, etc. * Restrict stair-climbing for 7 days if possible, if not, climb up with your non -cath leg, then bring together on the same step. * Avoid lifting, pushing, pulling or excessive movement of the affected extremity for 7 days. * Customary sexual activity may be resumed after 2 days-use caution not to use a position that strains or causes pain to the affected extremity. * No driving for 24 hours. * NO SMOKING. * Avoid straining for bowel movements for 7 days. * Gentle walking on level ground is allowed. * Returning to work will depend on the type of procedure and the results. Your doctor will discuss this with you. CALL YOUR DOCTOR FOR ANY OF THE FOLLOWING: *If bleeding from the puncture site occurs- Apply gentle pressure to site with clean cloth and call your doctor or EMS. * If a knot or lump forms under the skin, increases in size, or causes pain. * If bruising appears to be worsening or moving further down your leg instead of disappearing. * Temperature above 101 F. CARE OF YOUR GROIN INCISION; * Bruising or purple discoloration of the skin near the puncture site is common. * You may shower only, no bathtub bathing for 5 days. Be careful to avoid slipping as your leg may feel stiff. * If a closure device was used on your femoral artery, please see the attached guide regarding care of the device and your leg. * REMOVE the dressing from your groin the next day after your procedure in the shower. CARE OF YOUR WRIST INCISION; * Bruising or purple discoloration of the skin near the puncture site is common. * You may shower. * DO NOT submerge wrist. * Remove dressing in 24 hours. Pamela QUINTANILLA MD Apr 26, 2017 10:58
--- NOTE | 2017-04-26 11:01 | Cardiology Discharge Summary ---
Diagnosis/Chief Complaint Date of Admission 04/25/2017 Date of Discharge 04/26/2017 Admission Diagnosis Chest pain, abnormal nuclear stress test Final/Discharge Diagnosis Severe mid LAD stenosis treated successfully with 1 drug-eluting stent Chief Complaint/HPI Chief Complaint/HPI This is a 61-year-old gentleman with history of smoking. He presented to the ER with complaints of prolonged episode of chest pain, shortness of breath and palpitations. Acute coronary syndrome was ruled out with serial negative troponins and EKG. Nuclear stress test was performed which showed significant ischemia in the anterior territory. Coronary angiography was recommended however the patient at that point in time refused coronary angiography and wanted it to be set up as an outpatient. He understood all the risks associated with it. He was therefore admitted as an outpatient for coronary angiography. Discharge Summary Procedures Coronary angiography showed severe LAD stenosis. Stenosis severity over 90 percent. One single drug-eluting stent placed. Excellent results Discharge Physical Examination Normal cardiorespiratory examination. Normal right wrist examination. Hospital Course Uncomplicated. Pending Labs Laboratory Tests 04/26/17 06:00: White Blood Count 6.6, Red Blood Count 4.46, Hemoglobin 14.6, Hematocrit 42, Mean Corpuscular Volume 95, Mean Corpuscular Hemoglobin 33, Mean Corpuscular Hemoglobin Concent 35, Red Cell Distribution Width 13.3, Platelet Count 209, Mean Platelet Volume 10.3, Sodium Level 142, Potassium Level 3.5, Chloride Level 110, Carbon Dioxide Level 23, Anion Gap 9, Blood Urea Nitrogen 12, Creatinine 0.79, Estimat Glomerular Filtration Rate > 60, BUN/Creatinine Ratio 15, Glucose Level 89, Calcium Level 8.5, Triglycerides Level 75, Cholesterol Level 120, LDL Cholesterol Direct 77, VLDL Cholesterol 15, HDL Cholesterol 29 Discussion & Recommendations Discussion Discharge took over 30 minutes to complete. Discussed at length with the patient and especially compliance with medication especially Brilinta. All information provided. Follow up appt.: Dr. Quintanilla in one to 2 weeks Dicharge Diet: Cardiac Diet Activity as Tolerated: Yes Home Medications Reviewed patient Home Medication Reconciliation Form Discharge Home Medications: Reviewed and agree with Discharge Medication list on patient's Discharge Instruction sheet Condition at discharge Stable Instructions to patient/family Dr. Quintanilla in one to 2 weeks Clinical Quality Measures DVT/VTE Risk/Contraindication: Risk Factor Score Per Nursin RFS Level Per Nursing on Admit: 3=High Pamela QUINTANILLA MD Apr 26, 2017 11:01
== END 2017-04-26 11:37 | disposition home or self-care (01) ==
LOC: CATH 09:01 → 4TH 15:15 → CATH 04-26 11:37
PROVIDERS: ATTEND Internal Medicine Interventional Cardiology
DX: I25.10 Atherosclerotic heart disease of native coronary artery without angina pectoris (principal); Z87.891 Personal history of nicotine dependence
CPT/HCPCS: 36415; 80048; 80053; 80061; 85027; 85610; 85730; 87081; 93005; 93458